=== PATIENT | male | born 1995 | race African-American/Black ===

== ENCOUNTER 2018-07-27 12:28 | Emergency (ER) | payer SELFPAY ==
[~2018-07-27] VITALS: Ht 172.7 cm; Wt 55.3 kg
--- NOTE | 2018-07-27 12:37 | NUR ---
[address] [address] C/O NAUSEA AND VOMITING. PT APPEARS ANXIOUS AND PARANOID. AOX3, VSS, RR EVEN AND UNLABORED ON RA. VOMIT X 1 ON ENTERING ED. NO OTHER COMPLAINTS AT THIS TIME. MADE COMFORTABLE AND READY FOR EVAL.
[2018-07-27] MEDS ORDERED: MORPHINE SULFATE INJ 2 MG/ML DISP.SYRIN IV ONE (13:00)
[2018-07-27] MEDS ORDERED: ONDANSETRON HCL/PF 4 MG/2 ML VIAL IVP ONE (13:00)
[2018-07-27] MEDS ORDERED: IV NS 0.9% 1,000 ML BAG IV ONE (13:00)
[2018-07-27] MEDS ORDERED: ONDANSETRON HCL/PF 4 MG/2 ML VIAL ONE (13:09)
[2018-07-27] MEDS ORDERED: MORPHINE SULFATE INJ 4 MG/ML DISP.SYRIN ONE (13:09)
--- NOTE | 2018-07-27 13:14 | NUR ---
PT WAS FOUND LAYING ON BATHROOM FLOOR, -FALL. YELLING AND ASKING FOR HELP, GRABBING ONTO LEGS OF STAFF. PT PLACED ON GURNEY AND TAKEN BACK TO ROOM. CONTINUES TO ACT ERRATICALLY. MARY LESTER NOTIFIED. PER MARY, PLACED ON 4-PT RESTRAINTS AND MONITOR FOR SAFETY. CMS INTACT. WILL CONTINUOUSLY MONITOR.
[2018-07-27] MEDS ORDERED: LORAZEPAM INJ 2 MG/ML VIAL ONE ×3 (13:16→15:23)
[2018-07-27] MEDS ORDERED: OLANZAPINE 10 MG VIAL IM ONE ×3 (13:30→15:30)
[2018-07-27] MEDS ORDERED: LORAZEPAM INJ 2 MG/ML VIAL IM ONE ×4 (13:30→15:30)
--- NOTE | 2018-07-27 14:06 | NUR ---
PT SLEEPING. IV ACCESS OBTAINED AND IVF INFUSING. VSS. WILL CONT TO MONITOR.
[2018-07-27 14:12] LABS: BASOPHILS # (AUTO) 0.1 /CMM (0.0-0.2); BASOPHILS % (AUTO) 0.6 % (0.0-2.0); HEMATOCRIT 46 % (39-51); HEMOGLOBIN 15.3 g/dL (13.5-17.5); LYMPHOCYTES # (AUTO) 1.6 /CMM (0.8-4.8); LYMPHOCYTES % (AUTO) 13.1 % (20.0-44.0); MEAN CORPUSCULAR HGB CONC 33 g/dl (31.0-36.0); MEAN CORPUSCULAR VOLUME 68 fL (80-96); MONOCYTES # (AUTO) 0.6 /CMM (0.1-1.30); MONOCYTES % (AUTO) 5.2 % (2.0-12.0); NEUTROPHILS # (AUTO) 9.7 /CMM (1.8-8.9); NEUTROPHILS % (AUTO) 81.1 % (43.0-81.0); PLATELET COUNT (AUTO) 342 /CMM (150-450); RED BLOOD CELL COUNT(AUTO) 6.78 MIL/uL (4.5-6.0); WHITE BLOOD COUNT (AUTO) 11.9 K/uL (4.3-11.0)
[2018-07-27 14:22] LABS: CALCIUM, SERUM 10.9 mg/dL (8.5-10.1); CARBON DIOXIDE 24 mmol/L (21-32); CHLORIDE 94 mmol/L (98-107); CREATININE 1.8 mg/dL (0.6-1.3); GLUCOSE 91 mg/dL (74-106); UREA NITROGEN, BLOOD 32 mg/dL (7-18)
[2018-07-27 14:29] LABS: SODIUM SERUM 136 mmol/L (136-145)
[2018-07-27 14:31] LABS: ALANINE AMINOTRANSFERASE 53 U/L (12-78); ALBUMIN 5.5 g/dL (3.4-5.0); ALKALINE PHOSPHATASE 74 U/L (46-116); ASPARTATE AMINOTRANSFERASE 77 U/L (15-37); BILIRUBIN,DIRECT 0.2 mg/dL (0.0-0.2); BILIRUBIN,TOTAL 0.9 mg/dL (0.2-1.0); LIPASE 60 U/L (73-393); TOTAL PROTEIN, SERUM 10.1 g/dL (6.4-8.2)
[2018-07-27 14:32] LABS: ACETAMINOPHEN 0 ug/ml (10-30); SALICYLATE 2.7 mg/dL (2.8-20.0)
[2018-07-27] MEDS ORDERED: HALOPERIDOL LACTATE INJ 5 MG/ML VIAL ONE (14:47)
[2018-07-27 14:48] LABS: ALCOHOL, BLOOD < 3 mg/dL (0-0)
--- NOTE | 2018-07-27 14:54 | NUR ---
URINE SENT TO STAT LAB
[2018-07-27] MEDS ORDERED: HALOPERIDOL LACTATE INJ 5 MG/ML VIAL IM ONE ×2 (15:00)
--- NOTE | 2018-07-27 17:03 | NUR ---
PT ASLEEP IN BED. CMS INTACT, VSS. AROUSES EASILY. WILL CONT TO MONITOR.
--- NOTE | 2018-07-27 19:36 | NUR ---
Patient is resting comfortably in bed with eyes closed. Easily aroused. VSS
[2018-07-27] MEDS ORDERED: LIDOCAINE 2% JEL UROJET 10 ML MM ONE (21:08)
[2018-07-27 21:32] LABS: APPEARANCE,URINE Clear (CLEAR); BILIRUBIN,URINE SMALL (NEGATIVE); BLOOD, URINE Large Ery/uL (NEGATIVE); COLOR,URINE Yellow (YELLOW); KETONES,URINE >=160 (NEGATIVE); LEUKOCYTE ESTERASE ,URINE Negative (NEGATIVE); NITRITE, URINE Negative (NEGATIVE); PROTEIN,URINE 100 mg/dl (NEGATIVE); UGLUCOSE Negative (NEGATIVE); UROBILINOGEN,URINE 0.2 EU/dL (0.2)
--- NOTE | 2018-07-27 21:48 | NUR ---
PT RETURN FROM CT VIA [facility].
[2018-07-27 22:11] LABS: BACTERIA,URINE Few /HPF (None Seen); RBC,URINE 21-50 /HPF (0-2); SQUAMOUS EPITHELIAL CELL,UR Rare /HPF (None Seen)
--- NOTE | 2018-07-28 03:18 | NUR ---
Pt sleeping in [facility]. No signs of distress noted. Pt vital signs within normal limits. Will continue to monitor pt.
--- NOTE | 2018-07-28 04:45 | NUR ---
Pt sleeping in gurney. Pt easily arousable. Pt denies si/hi. Pt a/ox3. Will cont to monitor pt.
--- NOTE | 2018-07-28 05:25 | NUR ---
Pt requesting to be discharged home. Pt ok to be discharged per dr Mueller. IV removed. Catheter intact and site benign. Pressure and 4x4 applied to site. No bleeding noted.Patient discharged to home in stable condition. Written and verbal after care instructions given. Patient verbalizes understanding of instruction.Patient is awake and alert to self, day, and place. Pt ambulatory with a steady gait
[2018-07-28 05:26] VITALS: BP 121/88
== END 2018-07-28 05:27 | disposition home or self-care (01) ==
LOC: ER 12:28
DX: F28 Other psychotic disorder not due to a substance or known physiological condition (principal); R10.84 Generalized abdominal pain
CPT/HCPCS: 36415; 70450; 80048; 80076; 80305; 80307; 80329; 81001; 83690; 85025; 96360; 96372 ×2; 99284; G0480; J1630; J2060 ×3; J3490 ×3; J7030; 81000-TC; J2270; J2405